=== PATIENT | female | born 1985 | race American Indian/Alaskan Native ===

== ENCOUNTER 2021-06-22 22:15 | Emergency (ER) | payer SELFPAY ==
[~2021-06-22] VITALS: Ht 172.7 cm; Wt 90.0 kg
[2021-06-22] MEDS ORDERED: KETOROLAC 30MG/ML VIAL IM ONE (23:00)
[2021-06-22] MEDS ORDERED: PROCHLORPERAZINE 10MG/2ML VIAL IM ONE (23:00)
[2021-06-22] MEDS ORDERED: DIPHENHYDRAMINE 50MG/ML VIAL IM ONE (23:00)
[2021-06-23] MEDS ORDERED: T3 PO (00:22)
[2021-06-23] MEDS ORDERED: ZOLM2.5T6 MT (00:24)
[2021-06-23] MEDS ORDERED: ACETAMINOPHEN WITH CODEINE 300/30MG TABLET PO ONE (00:30)
[2021-06-23 00:54] VITALS: BP 130/86
== END 2021-06-23 01:32 | disposition home or self-care (01) ==
LOC: ER 22:15
DX: G43.909 Migraine, unspecified, not intractable, without status migrainosus (principal)
CPT/HCPCS: 81025; 96372; 99284; J0780; J1200; J1885

== ENCOUNTER 2021-09-02 08:24 | Emergency (ER) | payer SELFPAY ==
[~2021-09-02] VITALS: Ht 172.7 cm; Wt 86.0 kg
[~2021-09-02 08:24] MED LIST: T3 PO; ZOLM2.5T6 MT
[2021-09-02] MEDS ORDERED: IBUPROFEN 600MG TABLET PO ONE (09:00)
[2021-09-02] MEDS ORDERED: ACYC15OI7 TP (09:12)
[2021-09-02] MEDS ORDERED: DOCO2CRE5 TP (09:12)
[2021-09-02] MEDS ORDERED: TC025C15 TP (09:12)
[2021-09-02 09:38] VITALS: BP 135/65
== END 2021-09-02 09:40 | disposition home or self-care (01) ==
LOC: ER 08:24
DX: R07.89 Other chest pain (principal); L50.9 Urticaria, unspecified; G43.909 Migraine, unspecified, not intractable, without status migrainosus; Z79.899 Other long term (current) drug therapy
CPT/HCPCS: 71045; 82962; 93005; 99283

== ENCOUNTER 2022-07-13 07:13 | Emergency (ER) | payer MEDICAID ==
[~2022-07-13] VITALS: Ht 172.7 cm; Wt 84.0 kg
[~2022-07-13 07:13] MED LIST changes: +ACYC15OI7 TP; +TC025C15 TP
[2022-07-13 07:31] VITALS: BP 141/85
[2022-07-13] MEDS ORDERED: VISCOUS LIDOCAINE 2% 15 ML UDC PO STA (08:57)
[2022-07-13] MEDS ORDERED: BENZONATATE 100MG CAPSULE PO ONE (09:00)
[2022-07-13 09:22] LABS: BASOPHILS % 0.7 % (0.0-2.0); EOSINOPHILS % 0.8 % (0.0-5.0); HEMATOCRIT. 36.3 % (36.0-48.0); MEAN CORPUSCULAR HEMOGLOBIN 29.2 pg (28.0-32.0); MEAN CORPUSCULAR VOLUME 88.8 fL (81.0-99.0); MEAN PLATELET VOLUME 7.9 fl (7.4-10.4); MONOCYTES % 5.7 % (2.0-8.0); NEUTROPHILS % 67.8 % (40.0-76.0); PLATELET 283 x1000/uL (130-400); RED BLOOD CELL COUNT 4.09 mill/uL (4.2-5.4); RED CELL DISTRIBUTION WIDTH 14.4 % (11.6-14.6)
[2022-07-13 09:37] LABS: CHLORIDE 110 mEq/L (98-107)
[2022-07-13] MEDS ORDERED: BENZ100C86 MT (10:07)
== END 2022-07-13 10:44 | disposition home or self-care (01) ==
LOC: ER 07:13
DX: J04.0 Acute laryngitis (principal); G43.909 Migraine, unspecified, not intractable, without status migrainosus
CPT/HCPCS: 36415; 80048; 81025; 84443; 85025; 99283

== ENCOUNTER 2023-07-28 11:51 | Emergency (ER) | payer MEDICAID ==
[~2023-07-28] VITALS: Ht 172.7 cm; Wt 91.0 kg
[~2023-07-28 11:51] MED LIST changes: +BENZ100C86 MT
[2023-07-28 11:58] VITALS: BP 160/96; PULSE 66; RESP 16; TEMP 98.7; O2SAT 98
[2023-07-28] MEDS ORDERED: SODIUM CHLORIDE 0.9% 1,000 ML IV ONE (14:15)
[2023-07-28] MEDS ORDERED: DIPHENHYDRAMINE 50MG/ML VIAL IV ONE (14:15)
[2023-07-28] MEDS ORDERED: ACETAMINOPHEN 325MG TABLET PO ONE (14:15)
[2023-07-28] MEDS ORDERED: METOCLOPRAMIDE HCL 10MG/2ML VIAL IV ONE (14:15)
[2023-07-28 15:19] LABS: BASOPHILS % 0.3 % (0.0-2.0); DIFFERENTIAL COMMENT 0; EOSINOPHILS % 1.6 % (0.0-5.0); HEMATOCRIT. 35.1 % (36.0-48.0); HEMOGLOBIN. 10.8 g/dL (12.0-16.0); LYMPHOCYTES % 23.1 % (20.0-50.0); MEAN CORPUSCULAR HGB CONC 30.7 g/dL (31.0-37.0); MEAN CORPUSCULAR VOLUME 78.2 fL (81.0-99.0); MEAN PLATELET VOLUME 7.6 fl (7.4-10.4); MONOCYTES % 6.3 % (2.0-8.0); NEUTROPHILS % 68.7 % (40.0-76.0); PLATELET 300 x1000/uL (130-400); RED BLOOD CELL COUNT 4.49 mill/uL (4.2-5.4); RED CELL DISTRIBUTION WIDTH 17.9 % (11.6-14.6)
[2023-07-28 15:37] LABS: ALANINE AMINOTRANSFERASE 16 IU/L (10-49); ASPARTATE AMINOTRANSFERASE 16 IU/L (<34); BILIRUBIN TOTAL 0.3 mg/dL (0.1-1.0); CALCIUM 8.8 mg/dL (8.7-10.4); CARBON DIOXIDE 24 mEq/L (21-32); CHLORIDE 110 mEq/L (98-107); CREATININE 0.7 mg/dL (0.6-1.0); GLUCOSE 79 mg/dL (70-105); POTASSIUM 3.2 mEq/L (3.5-5.1); PROTEIN TOTAL 7.7 g/dL (6.0-8.3); SODIUM 144 mEq/L (136-145); UREA NITROGEN BLOOD 6 mg/dL (9-23)
[2023-07-28] MEDS ORDERED: POTASSIUM CHLORIDE 20MEQ/PACKET PO ONE (16:30)
[2023-07-28] MEDS ORDERED: TOPUD MT (16:47)
== END 2023-07-28 17:37 | disposition home or self-care (01) ==
LOC: ER 11:51
DX: G43.909 Migraine, unspecified, not intractable, without status migrainosus (principal)
CPT/HCPCS: 80053; 85025; 36415; 70450; 96361; 96374; 96375; 99285; J1200; J2765; J7030; Z7610 ×2